=== PATIENT | female | born 1995 | race American Indian/Alaskan Native ===

== ENCOUNTER 2020-06-28 18:49 | Outpatient (CLI) | payer MEDICAID ==
[2020-06-28 20:34] VITALS: BP 125/72
== END 2020-06-28 19:52 | disposition home or self-care (01) ==
LOC: TRG 18:49 → APU 18:51 → TRG 19:52 → APU 20:34
PROVIDERS: ATTEND Obstetrics & Gynecology
DX: O26.893 Other specified pregnancy related conditions, third trimester (principal); R10.9 Unspecified abdominal pain; Z3A.38 38 weeks gestation of pregnancy
CPT/HCPCS: 59025

== ENCOUNTER 2020-07-12 03:40 | Inpatient (IN) | payer MEDICAID ==
[2020-07-12] MEDS ORDERED: LACTATED RINGERS 1,000 ML ONE (04:34)
--- NOTE | 2020-07-12 04:36 | History and Physical Report ---
History of Present Illness Date of examination: 07/12/20 History of present illness: Patient presents to L&D with complaints contractions and ruptured membranes. Intial cervical examper RN is 5 cm. Her course complicated by GBS positive and h/o cardiac surgery as a child. Menstrual History Regularity: regular Menses every: 28 days Duration: 4 LMP: 10/01/2019 LMP reliability: definite LMP character: normal test type: urine test Date: 12/30/2019 BC at conception: none Planned ? yes EDC Calculations LMP: 07/07/2020 EDC Confirmation: 07/07/2020 Past History : 1 Risk Factors: Smoked Tobacco Use: Never smoker Smokeless Tobacco Use: Never Passive smoke exposure: no Drug use: no HIV high-risk behavior: no Caffeine use: 0 drinks per day Alcohol use: no Exercise: no Seatbelt use: preg-head counselor % Dietary Counseling: pn yes PAP Smear History: Date of Last PAP Smear: 06/25/2019 Results: Normal Past Medical History: Heart mumur at 5 yrs old - resolved Past Surgical History: Surgical repair of heart mumur at 5 yrs old Family History Summary: Other family member - Has Family History of Hypertension - Entered On: 12/30/2019 Other family member - Has Family History of Diabetes - Entered On: 12/30/2019 Father (biol.) - Has Family History of CVA or Stroke - Entered On: 12/30/2019 Social History: Patient is single Smoking History: Patient has never smoked. 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 Infection History Hx of STD: none HIV Risk Eval: no Hepatitis B Risk Eval: low risk Personal hx. of genital herpes: no Partner hx. of genital herpes: no Varicella/Chicken Pox Status: Immunized Genetic History Congenital Heart Defect: Mom: no Dad: no Kathleen Disease: Mom: no Dad: no Thalassemia Mom: no Dad: no Neural Tube Defect Mom: no Dad: no Down's Syndrome Mom: no Dad: no Ben-Sachs Mom: no Dad: no Sickle Cell Disease/Trait Mom: no Dad: no Hemophilia Mom: no Dad: no Muscular Dystrophy Mom: no Dad: no Cystic Fibrosis Mom: no Dad: no [place] Chorea Mom: no Dad: no Mental Retardation Mom: no Dad: no Fragile X Mom: no Dad: no Other Genetic/Chromosomal Disorder Mom: no Dad: no Child w/other defect Mom: no Dad: no Enviromental Exposures Enviromental Exposures Reviewed Xray Exposure: no Medication, drug, or alcohol use since LMP: no Chemical/Other Exposure: no Exposure to Cat Liter: no Hx of Parvovirus (Fifth Disease): no Occupational Exposure to Children: none 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 Current Allergies (reviewed today): No known allergies Past History Past Medical History: other (SEE HPI) Past Surgical History: other (SEE HPI) 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) Family/Genetic History: other (SEE HPI) Social history: full code, other (SEE HPI) - Obstetrical History Expected Date of Delivery: 07/07/20 Actual Gestation: 40 Week(s) 5 Day(s) : 1 Para: 0 Hx # Term Pregnancies: 0 Number of Pregnancies: 0 Spontaneous Abortions: 0 Induced : 0 Number of Living Children: 0 Medications and Allergies Allergies Allergy/AdvReac Type Severity Reaction Status Date / Time No Known Allergies Allergy Unverified 06/28/20 20:34 Home Medications Medication Instructions Recorded Confirmed Last Taken Type No Known Home Medications [No 06/28/20 06/28/20 Unknown History Reported Home Medications] Review of Systems Genitourinary: leakage of fluid, contractions - Vital Signs Vital signs: Vital Signs Pulse Pulse Ox 88 99 07/12/20 03:57 07/12/20 03:57 Temp Pulse Resp BP Pulse Ox 98.3 F 103 H 18 130/77 100 07/12/20 03:58 07/12/20 04:24 07/12/20 03:58 07/12/20 03:58 07/12/20 04:24 - Physical Exam Breasts: Positive: deferred Cardiovascular: Regular rate Lungs: Positive: Normal air movement Vagina: Positive: other Uterus: Positive: enlarged - Obstetrical FHR: category 1 Uterine Contraction Pattern: Regular Uterine Contraction Intensity: Strong/Firm Results All other labs normal. Assessment and Plan - Patient Problems (1) Premature rupture of membranes Current Visit: Yes Status: Acute Qualifiers: PROM onset of labor timing: onset of labor within 24 hours of rupture PROM gestational age: full term Qualified Code(s): O42.02 - Full-term premature rupture of membranes, onset of labor within 24 hours of rupture Plan to address problem: Admit to L&D see orders (2) Group B streptococcal carriage complicating Current Visit: Yes Status: Acute Plan to address problem: Antibiotic prophylaxis (3) Postmaturity , 40-42 weeks gestation Current Visit: Yes Status: Acute (4) Hx of heart surgery Current Visit: Yes Status: Chronic
[2020-07-12] MEDS ORDERED: AMPICILLIN/NS 2 GM/100 ML 2 GM/100 ML BAG IV ONE ×2 (04:42→04:43)
[2020-07-12] MEDS ORDERED: LIDOCAINE (2%) 20 MG/1 ML VIAL 20 ML MDV INFILTRATI ONE (04:43)
[2020-07-12] MEDS ORDERED: BUTORPHANOL 2 MG/1 ML INJ IV PRN (04:43)
[2020-07-12] MEDS ORDERED: TERBUTALINE 1 MG/1 ML INJ SUB-Q PRN (04:43)
[2020-07-12] MEDS ORDERED: PROMETHAZINE 25 MG TAB PO PRN ×2 (04:43→14:26)
[2020-07-12] MEDS ORDERED: ePHEDrine SULFATE 50 MG/1 ML INJ IV PRN ×2 (04:43→06:23)
[2020-07-12] MEDS ORDERED: TERBUTALINE 1 MG/1 ML INJ IVP PRN (04:43)
[2020-07-12] MEDS: LACTATED RINGERS 1,000 ML IV SCH ×2 (05:06→09:54)
[2020-07-12 05:32] LABS: Hematocrit 29.5 % (30.3-42.9); Hemoglobin 8.9 gm/dl (10.1-14.3); Mean Corpuscular HGB Conc 30 % (30-34); Platelet Count 323 K/mm3 (140-440); Red Blood Count 4.95 M/mm3 (3.65-5.03)
[2020-07-12 05:35] LABS: Mean Corpuscular Volume 60 fl (79-97); Red Cell Distribution Width 21.2 % (13.2-15.2)
[2020-07-12] MEDS ORDERED: DEXMEDETOMIDINE 200 MCG/2 ML VIAL IV ONE (05:59)
[2020-07-12] MEDS ORDERED: NALOXONE 2 MG/2 ML INJ IV PRN (06:23)
--- NOTE | 2020-07-12 06:23 | Anesthesia Consultation ---
Anesthesia Consult and Med Hx Date of service: 07/12/20 - Airway Anesthetic Teeth Evaluation: Good ROM Head & Neck: Adequate Mental/Hyoid Distance: Adequate Mallampati Class: Class II Intubation Access Assessment: Probably Good - Pulmonary Exam CTA: Yes - Cardiac Exam Cardiac Exam: RRR - Pre-Operative Health Status ASA Pre-Surgery Classification: ASA2 Proposed Anesthetic Plan: Epidural - Pulmonary Hx Asthma: No - Cardiovascular System Hx Hypertension: No - Central Nervous System Hx Seizures: No Hx Psychiatric Problems: No - Endocrine Hx Renal Disease: No Hx Hypothyroidism: No Hx Hyperthyroidism: No - Hematic Hx Anemia: No Hx Sickle Cell Disease: No - Other Systems Hx Alcohol Use: No
--- NOTE | 2020-07-12 06:25 | Progress Note ---
Labor Epidural - Labor Epidural Start Time: 06:08 Stop Time: 06:15 Performed by:: CLIFTON MARKS Procedure: Patient is requesting epidural for labor pain. H&P, and labs reviewed. Procedure explained, questions answered, consent obtained. Patient in sitting position with blood pressure cuff and pulse ox on and working. Timeout performed immediately before start of procedure. Sterile betadine prep/drape. 3 mL 1% lidocaine skin wheal at L[3]-L[4]. 18-gauge Touhy epidural needle advanced to [id number] with saline at [7] cm. 27-gauge spinal needle advanced until clear, free-flowing CSF. Intrathecal dexmedetomidine [5] mcg administered and needle removed. Epidural catheter advanced to [12] cm, negative aspiration for blood and csf, negative test dose 3 ml 1.5% lidocaine with epinephrine. Sterile steri-strips and tegaderm applied, followed by tape reinforcement. Patient tolerated procedure well.
[2020-07-12] MEDS ORDERED: fentaNYL-BUPIV 2 MCG/ML-0.125% 200 MCG/100 ML BAG EPIDURAL SCH (07:00)
--- NOTE | 2020-07-12 07:49 | Progress Note ---
Assessment and Plan A: 24 y.o. @ 40.5 wks with SROM. Cervical exam 6.7/70/-2. Ctxs q 4-5 minutes. P: Will start Pitocin per protocol. Anticipate . Subjective - Subjective Date of service: 07/12/20 (Pt comfortable with epidural) Principal diagnosis: IUP @ 40.5 wks with SROM Objective - Vital Signs Vital Signs: Vital Signs - 12hr 07/12/20 07/12/20 07/12/20 03:57 03:58 04:02 Temperature 98.3 F Pulse Rate 88 100 H 91 H Respiratory 18 Rate Blood Pressure 130/77 Blood Pressure 130/77 [Left] O2 Sat by Pulse 99 100 100 Oximetry 07/12/20 07/12/20 07/12/20 04:07 04:12 04:19 Temperature Pulse Rate 89 96 H 99 H Respiratory Rate Blood Pressure Blood Pressure [Left] O2 Sat by Pulse 100 100 100 Oximetry 07/12/20 07/12/20 07/12/20 04:24 05:05 05:19 Temperature Pulse Rate 103 H 104 H Respiratory 18 Rate Blood Pressure Blood Pressure [Left] O2 Sat by Pulse 100 99 Oximetry 07/12/20 07/12/20 07/12/20 05:24 05:29 05:31 Temperature Pulse Rate 99 H 92 H 85 Respiratory Rate Blood Pressure 124/64 Blood Pressure [Left] O2 Sat by Pulse 99 98 Oximetry 07/12/20 07/12/20 07/12/20 05:34 05:39 05:44 Temperature Pulse Rate 85 86 92 H Respiratory Rate Blood Pressure Blood Pressure [Left] O2 Sat by Pulse 98 99 100 Oximetry 07/12/20 07/12/20 07/12/20 05:47 05:49 05:54 Temperature Pulse Rate 94 H 91 H 102 H Respiratory Rate Blood Pressure 118/68 Blood Pressure [Left] O2 Sat by Pulse 98 98 Oximetry 07/12/20 07/12/20 07/12/20 05:59 06:03 06:04 Temperature Pulse Rate 101 H 117 H 111 H Respiratory Rate Blood Pressure 118/66 Blood Pressure [Left] O2 Sat by Pulse 100 100 Oximetry 07/12/20 07/12/20 07/12/20 06:09 06:14 06:16 Temperature Pulse Rate 112 H 103 H 102 H Respiratory Rate Blood Pressure 126/69 Blood Pressure [Left] O2 Sat by Pulse 100 100 Oximetry 07/12/20 07/12/20 07/12/20 06:19 06:22 06:24 Temperature Pulse Rate 104 H 122 H 109 H Respiratory Rate Blood Pressure 120/64 Blood Pressure [Left] O2 Sat by Pulse 100 99 Oximetry 07/12/20 07/12/20 07/12/20 06:27 06:29 06:32 Temperature Pulse Rate 99 H 101 H 103 H Respiratory Rate Blood Pressure 115/60 115/73 Blood Pressure [Left] O2 Sat by Pulse 99 Oximetry 07/12/20 07/12/20 07/12/20 06:34 06:37 06:39 Temperature Pulse Rate 116 H 106 H 109 H Respiratory Rate Blood Pressure 115/59 Blood Pressure [Left] O2 Sat by Pulse 99 99 Oximetry 07/12/20 07/12/20 07/12/20 06:41 06:44 06:49 Temperature Pulse Rate 118 H 109 H 102 H Respiratory Rate Blood Pressure 120/59 Blood Pressure [Left] O2 Sat by Pulse 99 98 Oximetry 07/12/20 07/12/20 07/12/20 06:54 06:59 07:04 Temperature Pulse Rate 101 H 101 H 105 H Respiratory Rate Blood Pressure Blood Pressure [Left] O2 Sat by Pulse 98 99 98 Oximetry 07/12/20 07/12/20 07/12/20 07:09 07:12 07:14 Temperature Pulse Rate 97 H 100 H 102 H Respiratory Rate Blood Pressure 128/69 Blood Pressure [Left] O2 Sat by Pulse 99 100 Oximetry 07/12/20 07/12/20 07/12/20 07:19 07:24 07:29 Temperature Pulse Rate 95 H 92 H 95 H Respiratory Rate Blood Pressure Blood Pressure [Left] O2 Sat by Pulse 99 99 99 Oximetry 07/12/20 07/12/20 07/12/20 07:34 07:39 07:42 Temperature Pulse Rate 88 87 89 Respiratory Rate Blood Pressure 116/70 Blood Pressure [Left] O2 Sat by Pulse 100 100 Oximetry 07/12/20 07:44 Temperature Pulse Rate 87 Respiratory Rate Blood Pressure Blood Pressure [Left] O2 Sat by Pulse 100 Oximetry - Exam Breasts: deferred Cardiovascular: Regular rate Lungs: Normal air movement Abdomen: Present: normal appearance, soft Vulva: both: normal Uterus: Present: normal FHR: category 1 Uterine Contraction Monitor Mode: External Cervical Dilatation: 6.5 Cervical Effacement Percentage: 70 station: -2 Uterine Contraction Pattern: Regular Uterine Tone Measurement Phase: Resting Uterine Contraction Intensity: Moderate Extremities: normal Deep Tendon Reflex Grade: Normal +2 - Labs Labs: Abnormal Labs 07/12/20 04:40 WBC 11.6 H Hgb 8.9 L Hct 29.5 L MCV 60 L MCH 18 L RDW 21.2 H Laboratory Results - last 24 hr 07/12/20 07/12/20 04:40 04:40 WBC 11.6 H RBC 4.95 Hgb 8.9 L Hct 29.5 L MCV 60 L MCH 18 L MCHC 30 RDW 21.2 H Plt Count 323 Blood Type O POSITIVE Antibody Screen Negative
[2020-07-12] MEDS ORDERED: OXYTOCIN DRIP 30 UNITS/500 ML BAG IV SCH (08:00)
[2020-07-12] MEDS ORDERED: AMPICILLIN/NS 1 GM/50 ML 1 GM/50 ML BAG IV SCH (10:00)
--- NOTE | 2020-07-12 11:32 | Progress Note ---
Assessment and Plan A: 24 y.o. @ 40.5 wks in active labor. Cervical exam . Variables with minimal variability noted in FHR tracing. P: IV bolus started, pitocin turned off. Pt repositioned in bed. Will restart pitocin in 30 minutes when FHR category 1. Anticipate . Subjective - Subjective Date of service: 07/12/20 (Pt is feeling a lot of vaginal pressure.) Principal diagnosis: IUP @ 40.5 wks with SROM Objective - Vital Signs Vital Signs: Vital Signs - 12hr 07/12/20 07/12/20 07/12/20 03:57 03:58 04:02 Temperature 98.3 F Pulse Rate 88 100 H 91 H Respiratory 18 Rate Blood Pressure 130/77 Blood Pressure 130/77 [Left] O2 Sat by Pulse 99 100 100 Oximetry 07/12/20 07/12/20 07/12/20 04:07 04:12 04:19 Temperature Pulse Rate 89 96 H 99 H Respiratory Rate Blood Pressure Blood Pressure [Left] O2 Sat by Pulse 100 100 100 Oximetry 07/12/20 07/12/20 07/12/20 04:24 05:05 05:19 Temperature Pulse Rate 103 H 104 H Respiratory 18 Rate Blood Pressure Blood Pressure [Left] O2 Sat by Pulse 100 99 Oximetry 07/12/20 07/12/20 07/12/20 05:24 05:29 05:31 Temperature Pulse Rate 99 H 92 H 85 Respiratory Rate Blood Pressure 124/64 Blood Pressure [Left] O2 Sat by Pulse 99 98 Oximetry 07/12/20 07/12/20 07/12/20 05:34 05:39 05:44 Temperature Pulse Rate 85 86 92 H Respiratory Rate Blood Pressure Blood Pressure [Left] O2 Sat by Pulse 98 99 100 Oximetry 07/12/20 07/12/20 07/12/20 05:47 05:49 05:54 Temperature Pulse Rate 94 H 91 H 102 H Respiratory Rate Blood Pressure 118/68 Blood Pressure [Left] O2 Sat by Pulse 98 98 Oximetry 07/12/20 07/12/20 07/12/20 05:59 06:03 06:04 Temperature Pulse Rate 101 H 117 H 111 H Respiratory Rate Blood Pressure 118/66 Blood Pressure [Left] O2 Sat by Pulse 100 100 Oximetry 07/12/20 07/12/20 07/12/20 06:09 06:14 06:16 Temperature Pulse Rate 112 H 103 H 102 H Respiratory Rate Blood Pressure 126/69 Blood Pressure [Left] O2 Sat by Pulse 100 100 Oximetry 07/12/20 07/12/20 07/12/20 06:19 06:22 06:24 Temperature Pulse Rate 104 H 122 H 109 H Respiratory Rate Blood Pressure 120/64 Blood Pressure [Left] O2 Sat by Pulse 100 99 Oximetry 07/12/20 07/12/20 07/12/20 06:27 06:29 06:32 Temperature Pulse Rate 99 H 101 H 103 H Respiratory Rate Blood Pressure 115/60 115/73 Blood Pressure [Left] O2 Sat by Pulse 99 Oximetry 07/12/20 07/12/20 07/12/20 06:34 06:37 06:39 Temperature Pulse Rate 116 H 106 H 109 H Respiratory Rate Blood Pressure 115/59 Blood Pressure [Left] O2 Sat by Pulse 99 99 Oximetry 07/12/20 07/12/20 07/12/20 06:41 06:44 06:49 Temperature Pulse Rate 118 H 109 H 102 H Respiratory Rate Blood Pressure 120/59 Blood Pressure [Left] O2 Sat by Pulse 99 98 Oximetry 07/12/20 07/12/20 07/12/20 06:54 06:59 07:04 Temperature Pulse Rate 101 H 101 H 105 H Respiratory Rate Blood Pressure Blood Pressure [Left] O2 Sat by Pulse 98 99 98 Oximetry 07/12/20 07/12/20 07/12/20 07:09 07:12 07:14 Temperature Pulse Rate 97 H 100 H 102 H Respiratory Rate Blood Pressure 128/69 Blood Pressure [Left] O2 Sat by Pulse 99 100 Oximetry 07/12/20 07/12/20 07/12/20 07:19 07:24 07:29 Temperature Pulse Rate 95 H 92 H 95 H Respiratory Rate Blood Pressure Blood Pressure [Left] O2 Sat by Pulse 99 99 99 Oximetry 07/12/20 07/12/20 07/12/20 07:34 07:39 07:42 Temperature Pulse Rate 88 87 89 Respiratory Rate Blood Pressure 116/70 Blood Pressure [Left] O2 Sat by Pulse 100 100 Oximetry 07/12/20 07/12/20 07/12/20 07:44 07:49 07:54 Temperature Pulse Rate 87 92 H 93 H Respiratory Rate Blood Pressure Blood Pressure [Left] O2 Sat by Pulse 100 100 100 Oximetry 07/12/20 07/12/20 07/12/20 07:59 08:04 08:09 Temperature Pulse Rate 93 H 88 89 Respiratory Rate Blood Pressure Blood Pressure [Left] O2 Sat by Pulse 99 100 100 Oximetry 07/12/20 07/12/20 07/12/20 08:13 08:14 08:19 Temperature Pulse Rate 88 92 H 79 Respiratory Rate Blood Pressure 114/75 Blood Pressure [Left] O2 Sat by Pulse 100 100 Oximetry 07/12/20 07/12/20 07/12/20 08:24 08:29 08:34 Temperature Pulse Rate 88 79 77 Respiratory Rate Blood Pressure Blood Pressure [Left] O2 Sat by Pulse 100 100 100 Oximetry 07/12/20 07/12/20 07/12/20 08:39 08:42 08:44 Temperature Pulse Rate 82 77 83 Respiratory Rate Blood Pressure 110/67 Blood Pressure [Left] O2 Sat by Pulse 100 100 Oximetry 07/12/20 07/12/20 07/12/20 08:49 08:54 08:59 Temperature Pulse Rate 80 81 85 Respiratory Rate Blood Pressure Blood Pressure [Left] O2 Sat by Pulse 100 100 100 Oximetry 07/12/20 07/12/20 07/12/20 09:04 09:09 09:12 Temperature Pulse Rate 83 79 80 Respiratory Rate Blood Pressure 113/69 Blood Pressure [Left] O2 Sat by Pulse 100 99 Oximetry 07/12/20 07/12/20 07/12/20 09:14 09:19 09:24 Temperature Pulse Rate 88 85 96 H Respiratory Rate Blood Pressure Blood Pressure [Left] O2 Sat by Pulse 100 100 100 Oximetry 07/12/20 07/12/20 07/12/20 09:29 09:34 09:39 Temperature Pulse Rate 99 H 101 H 121 H Respiratory Rate Blood Pressure Blood Pressure [Left] O2 Sat by Pulse 100 100 100 Oximetry 07/12/20 07/12/20 07/12/20 09:43 09:44 09:49 Temperature Pulse Rate 150 H 135 H 92 H Respiratory Rate Blood Pressure 117/64 Blood Pressure [Left] O2 Sat by Pulse 100 100 Oximetry 07/12/20 07/12/20 07/12/20 09:54 09:59 10:04 Temperature Pulse Rate 89 81 91 H Respiratory Rate Blood Pressure Blood Pressure [Left] O2 Sat by Pulse 100 100 99 Oximetry 07/12/20 07/12/20 07/12/20 10:09 10:12 10:14 Temperature Pulse Rate 89 88 89 Respiratory Rate Blood Pressure 120/76 Blood Pressure [Left] O2 Sat by Pulse 100 100 Oximetry 07/12/20 07/12/20 07/12/20 10:19 10:24 10:29 Temperature Pulse Rate 89 91 H 90 Respiratory Rate Blood Pressure Blood Pressure [Left] O2 Sat by Pulse 100 100 100 Oximetry 07/12/20 07/12/20 07/12/20 10:34 10:39 10:42 Temperature Pulse Rate 95 H 95 H 91 H Respiratory Rate Blood Pressure Blood Pressure [Left] O2 Sat by Pulse 100 100 75 L Oximetry 07/12/20 07/12/20 07/12/20 10:44 10:49 10:54 Temperature Pulse Rate 88 120 H 117 H Respiratory Rate Blood Pressure Blood Pressure [Left] O2 Sat by Pulse 100 100 100 Oximetry 07/12/20 07/12/20 07/12/20 10:59 11:04 11:09 Temperature Pulse Rate 104 H 111 H 113 H Respiratory Rate Blood Pressure Blood Pressure [Left] O2 Sat by Pulse 100 100 100 Oximetry 07/12/20 07/12/20 07/12/20 11:12 11:14 11:19 Temperature Pulse Rate 114 H 101 H 123 H Respiratory Rate Blood Pressure 107/56 Blood Pressure [Left] O2 Sat by Pulse 100 100 Oximetry 07/12/20 11:24 Temperature Pulse Rate 115 H Respiratory Rate Blood Pressure Blood Pressure [Left] O2 Sat by Pulse 100 Oximetry - Exam Breasts: deferred Cardiovascular: Regular rate Lungs: Normal air movement Abdomen: Present: normal appearance Vulva: both: normal Uterus: Present: normal FHR: category 2 (Some variable decels and minimal variability noted. ) Uterine Contraction Monitor Mode: External Cervical Dilatation: 9 (IUPC placed.) Cervical Effacement Percentage: 90 station: 0 Uterine Contraction Pattern: Regular Uterine Tone Measurement Phase: Resting Uterine Contraction Intensity: Moderate Extremities: normal Deep Tendon Reflex Grade: Normal +2 - Labs Labs: Abnormal Labs 07/12/20 04:40 WBC 11.6 H Hgb 8.9 L Hct 29.5 L MCV 60 L MCH 18 L RDW 21.2 H Laboratory Results - last 24 hr 07/12/20 07/12/20 04:40 04:40 WBC 11.6 H RBC 4.95 Hgb 8.9 L Hct 29.5 L MCV 60 L MCH 18 L MCHC 30 RDW 21.2 H Plt Count 323 Blood Type O POSITIVE Antibody Screen Negative
[2020-07-12] MEDS ORDERED: MINERAL OIL 30 ML ORAL LIQD ONE (12:22)
[2020-07-12] MEDS ORDERED: MINERAL OIL 30 ML ORAL LIQD PR ONE (12:25)
--- NOTE | 2020-07-12 12:31 | Event Note ---
Date: 07/12/20 (Pt states feeling intense pressure) Pt called out stating that she is feeling intense pressure. Cervical exam: 9.5/100/0. Continue current management.
[2020-07-12] MEDS: OXYTOCIN 20 UNIT/1000ML DRIP 20 UNITS/1,000 ML BAG IV SCH ×2 (13:52→14:57)
--- NOTE | 2020-07-12 14:25 | Procedure Note ---
OB Delivery Note - Delivery Date of Delivery: 07/12/20 Developing Machine Operator: VALENTE NICHOLAS Estimated blood loss: 300cc - Vaginal Delivery presentation: vertex Delivery position: OA Intrapartum events: decreased FHT variability, other(please specify) (One prolonged deceleration noted.) Delivery induction: none Delivery augmentation: rupture of membranes, pitocin Delivery monitor: external FHT, external uterine, internal uterine Route of delivery: Delivery placenta: spontaneous Delivery cord: 3 umbilical vessels Episiotomy: none Delivery laceration: 2nd degree Delivery repair: vicryl Anesthesia: epidural Delivery comments: of viable male . Infant to mothers chest after delivery for skin to skin. Cord cut and clamped after one minute and handed to MAYA for evaluation. Spontaneous delivery of placenta, intact, complete, 3 vessels noted. Fundus firm, minimal bleeding noted. Perineum and vagina inspected, 2nd degree laceration noted and repaired. Apgars 8,9. weight 6-9. EBL 300ml. Instruments and sponges counted X 2 with RN and correct X 2.
[2020-07-12] MEDS ORDERED: diphenhydrAMINE 25 MG CAP PO PRN (14:26)
[2020-07-12] MEDS ORDERED: WITCH HAZEL/ GLYCERIN PAD TP PRN (14:26)
[2020-07-12] MEDS ORDERED: LANOLIN/ZINC/DIMETHICONE (LANSINOH) 7 GM TP PRN (14:26)
[2020-07-12] MEDS ORDERED: ONDANSETRON 4 MG/2 ML INJ IV PRN (14:26)
[2020-07-12] MEDS ORDERED: MAGNESIUM HYDROXIDE (MOM) ORAL LIQD UDC PO PRN (14:26)
[2020-07-12] MEDS ORDERED: ACETAMINOPHEN 325 MG TAB PO PRN (14:26)
[2020-07-12] MEDS ORDERED: PROMETHAZINE 25 MG RECT SUPP PR PRN (14:26)
[2020-07-12] MEDS ORDERED: BENZOCAINE/MENTHOL 20/0.5% TOP SPRAY 56 GM TP PRN (14:26)
[2020-07-12] MEDS ORDERED: OXYTOCIN 20 UNIT/1000ML DRIP 20 UNITS/1,000 ML BAG IV SCH (15:00)
[2020-07-12] MEDS ORDERED: IBUPROFEN 600 MG TAB PO SCH (15:00)
[2020-07-12] MEDS: IBUPROFEN 800 MG TAB PO SCH (16:52)
[2020-07-12] MEDS: DOCUSATE SODIUM 100 MG CAP PO SCH (22:35)
[2020-07-13 06:28] LABS: Hematocrit 21.3 % (30.3-42.9); Hemoglobin 6.7 gm/dl (10.1-14.3)
--- NOTE | 2020-07-13 07:17 | Discharge Summary ---
Providers - Providers Date of Admission: 07/12/20 04:06 Date of discharge: 07/13/20 (pt desires d/c if possible) Attending physician: SREEDHAR GONZALEZ Primary care physician: SREEDHAR GONZALEZ Hospitalization Reason for admission: active labor Delivery: Episiotomy: none Laceration: none Incision: normal Other procedures: none complications: none Discharge diagnosis: IUP at term delivered [place] baby: male (circ to be done in OB office) Hospital course: uncomplicated vaginal delivery Pt resting No c/o voiced VSS FF below umb Lochia small Perineum slight swelling intact H&H 05/09, drop r/t blood loss from delivery. Pt is asymptomatic Will RX po iron Pt doing well s/p ; anemia P: d/c today with instructions RTO 1 wk circ and 4wk PP care. RX po iron Condition at discharge: Good Disposition: DC-01 TO HOME OR SELFCARE - Discharge Diagnoses (1) Normal spontaneous vaginal delivery Status: Acute Comment: RTO 4 weeks PP care Plan - Discharge Medications Prescriptions: Docusate Sodium [Colace] 100 mg PO BID PRN #60 capsule PRN Reason: Constipation Lidocain2.5%/Prilocai2.5% [Emla] 5 gm TP PRN #1 tube Ferrous Sulfate [Feosol 325 MG tab] 325 mg PO BID #60 tablet Ibuprofen [Motrin 800 MG tab] 800 mg PO TID PRN #30 tablet PRN Reason: Pain - Provider Discharge Summary Activity: routine, no sex for 6 weeks, no heavy lifting 4 weeks, no strenuous exercise Diet: routine Instructions: routine Additional instructions: [] Smoking cessation referral if applicable(refer to patient education folder for contact #) [] Refer to [facility] Booklet Call your doctor immediately for: * Fever > 100.5 * Heavy vaginal bleeding ( >1 pad per hour) * Severe persistent headache * Shortness of breath * Reddened, hot, painful area to leg or breast * Drainage or odor from incision. * Keep incision clean and dry at all times and follow doctor's instructions regarding bathing/showering - Follow up plan Follow up: SREEDHAR GONZALEZ MD [Primary Care Provider] - 7 Days (Congratulations! Please call [phone] to schedule your visit in 4 weeks and your son's circumcision in 1 week. Bring the EMLA cream with you to his visit. Do NOT use at home. Take medications as prescribed. Call with any concerns. )
[2020-07-13] MEDS ORDERED: PRENATAL VIT27-FE FUMARATE-FOLIC ACID VIT TAB PO SCH (10:00)
[2020-07-13 13:36] LABS: Hematocrit 24.1 % (30.3-42.9); Hemoglobin 7.4 gm/dl (10.1-14.3)
[2020-07-13] MEDS: DOCUSATE SODIUM 100 MG CAP PO SCH (13:41)
[2020-07-13] MEDS ORDERED: DIPHtheria,PERTUSSIS(ACELL),TETANUS VACCINE/PF 0.5 ML VIAL IM ONE (14:27)
[2020-07-13] MEDS: IBUPROFEN 800 MG TAB PO SCH (14:30)
[2020-07-13 17:15] VITALS: BP 130/78
== END 2020-07-13 17:30 | disposition home or self-care (01) | DRG 775 ==
LOC: TRG 03:40 → APU 03:47 → LD 04:06 → TRG 04:06 → OB 16:25
PROVIDERS: ADMIT Obstetrics & Gynecology; ATTEND Obstetrics & Gynecology
PROC: 10E0XZZ Delivery of Products of Conception, External Approach (ICD-10-PCS; principal; 2020-07-12)
PROC: 0KQM0ZZ Repair Perineum Muscle, Open Approach (ICD-10-PCS; 2020-07-12)
PROC: 3E0R3BZ Introduction of Anesthetic Agent into Spinal Canal, Percutaneous Approach (ICD-10-PCS; 2020-07-12)
PROC: 00HU33Z Insertion of Infusion Device into Spinal Canal, Percutaneous Approach (ICD-10-PCS; 2020-07-12)
PROC: 10H07YZ Insertion of Other Device into Products of Conception, Via Natural or Artificial Opening (ICD-10-PCS; 2020-07-12)
PROC: 3E0234Z Introduction of Serum, Toxoid and Vaccine into Muscle, Percutaneous Approach (ICD-10-PCS; 2020-07-13)
DX: O48.0 Post-term pregnancy (principal); O99.824 Streptococcus B carrier state complicating childbirth; O42.02 Full-term premature rupture of membranes, onset of labor within 24 hours of rupture; Z37.0 Single live birth; Z23 Encounter for immunization; O76 Abnormality in fetal heart rate and rhythm complicating labor and delivery; O70.1 Second degree perineal laceration during delivery; O90.81 Anemia of the puerperium; D64.9 Anemia, unspecified; Z3A.40 40 weeks gestation of pregnancy
CPT/HCPCS: 36415; 85014; 85018; 85027; 86850; 86900; 86901; G0378; J0290; J0595; J2590; J3490; J7120